=== PATIENT | female | born 1960 | race Caucasian/White ===

== ENCOUNTER 2018-09-23 12:09 | Inpatient (IN) ==
[2018-09-17 16:56] LABS: Appearance,Urine HAZY; Bilirubin,Urine NEG (NEG); Color,Urine YELLOW; Culture Indicated,Urine NO; Glucose,Urine (UA) NEGATIVE (NEG); Ketones,Urine NEG (NEG); Leukocyte Esterase,Urine NEG /uL (NEG); Nitrate,Urine NEG (NEG); Protein,Urine NEG (NEG); Urine Blood NEG mg/dL (<0.03); Urobilinogen,Urine NEG (NEG)
[2018-09-17 17:27] LABS: Basophils # (Auto) 0 K/mcL (0.0-0.3); Basophils % (Auto) 0.4 % (0.0-2.0); Eosinophils # (Auto) 0.1 K/mcL (0.0-0.7); Eosinophils % (Auto) 1.1 % (0.0-7.0); Granulocytes % (Auto) 58.9 % (38.0-78.0); Hematocrit 46.3 % (36.0-48.0); Hemoglobin 15.1 g/dL (12.0-15.0); Lymphocytes # (Auto) 3.4 K/mcL (1.5-4.8); Lymphocytes % (Auto) 31.2 % (15.5-49.0); Mean Cell Volume 79.8 fL (80.0-100.0); Mean Corpuscular HGB Conc 32.6 g/dL (31.0-36.0); Mean Platelet Volume 8.8 fL (7.4-10.4); Monocytes # (Auto) 0.9 K/mcL (0.1-0.9); Monocytes % (Auto) 8.4 % (1.0-12.0); Platelet Count 182 K/mcL (140-440); WBC 10.9 K/mcL (4.5-11.0)
[2018-09-17 17:45] LABS: Blood Urea Nitrogen 16 mg/dl (6-20); Calcium 9.4 mg/dl (8.6-10.4); Carbon Dioxide 20 mmol/L (22-30); Chloride 105 mmol/L (96-108); Glomerular Filtration Rate 81; Glucose 85 mg/dL (70-105)
[2018-09-17 18:41] LABS: Prothrombin Time 13.4 sec (11.9-14.5)
[~2018-09-23 12:09] MED LIST: 0.9 % SODIUM CHLORIDE 9 ML, KETOROLAC 30 MG, ROPIVACAINE HCL/PF 49.5 ML, EPINEPHrine 0.... IJ SCH; CELECOXIB 200 MG CAPSULE PO SCH; PREGABALIN 75 MG CAPSULE PO SCH; SCOPOLAMINE 1 PATCH PATCH TOPICAL ONE; ceFAZolin 2 GM in DEXTROSE 5% IN WATER 50 ML IV SCH; oxyCODONE 10 MG TAB.ER.12H PO SCH
[2018-09-23] MEDS ORDERED: IPRATROPIUM/ALBUTEROL 3 ML AMPUL.NEB NEB PRN ×2 (12:30→17:57)
[2018-09-23] MEDS ORDERED: GENTAMICIN SULFATE 800 MG/20 ML VIAL IR ONE (13:44)
[2018-09-23] MEDS ORDERED: PHENYLEPHRINE 10 MG/ML VIAL IV ONE (15:58)
[2018-09-23] MEDS ORDERED: ROPIVACAINE HCL/PF 20 ML VIAL IJ ONE (15:58)
[2018-09-23] MEDS ORDERED: ONDANSETRON 4 MG/2 ML VIAL IV ONE (15:58)
[2018-09-23] MEDS ORDERED: PROPOFOL 200 MG/20 ML VIAL IV ONE (15:58)
[2018-09-23] MEDS ORDERED: GLYCOPYRROLATE 0.2 MG/ML VIAL IV ONE (15:58)
[2018-09-23] MEDS ORDERED: LIDOCAINE HCL/PF 100 MG/5 ML SYRINGE IV ONE (15:58)
[2018-09-23] MEDS ORDERED: DEXAMETHASONE 10 MG/ML VIAL IV ONE (15:58)
[2018-09-23] MEDS ORDERED: ePHEDrine 50 MG/ML AMPUL IV ONE (15:58)
[2018-09-23] MEDS ORDERED: MIDAZOLAM 5 MG/5 ML VIAL IV ONE (15:58)
--- NOTE | 2018-09-23 17:30 | Brief Operative Note ---
Date of procedure: 09/23/18 Pre-op diagnosis: right knee osteoarthritis Post-op diagnosis: same Procedure: right total knee arthroplasty Grafts/Implants: Yes Anesthesia: spinal Complications: none Surgeon: Hardeep Braga [employer] Spacelift: Marilee Moncada Estimated blood loss (cc): 200 Tourniquet Time (Minutes): 50 Specimens Removed/Pathology: none sent Condition: stable Disposition: PACU
[2018-09-23] MEDS ORDERED: ONDANSETRON 4 MG/2 ML VIAL IV PRN ×2 (17:31→17:57)
[2018-09-23] MEDS ORDERED: BISACODYL 10 MG SUPP.RECT PR PRN (17:31)
[2018-09-23] MEDS ORDERED: POLYETHYLENE GLYCOL 3350 17 GM PACKET PO PRN (17:31)
[2018-09-23] MEDS ORDERED: ONDANSETRON 4 MG ODT TABLET SL PRN (17:31)
[2018-09-23] MEDS ORDERED: METHOCARBAMOL 750 MG TABLET PO PRN (17:31)
[2018-09-23] MEDS ORDERED: HYDROcodone/APAP 10/325MG TABLET PO PRN (17:31)
[2018-09-23] MEDS ORDERED: TRANEXAMIC ACID 1,000 MG/10 ML VIAL IV SCH (17:31)
[2018-09-23] MEDS ORDERED: MAGNESIUM HYDROXIDE 30 ML ORAL.SUSP PO PRN (17:31)
[2018-09-23] MEDS ORDERED: BENZOCAINE/MENTHOL 1 LOZENGE PO PRN ×2 (17:31→17:57)
[2018-09-23] MEDS ORDERED: FLEETS ADULT ENEMA PR PRN (17:31)
--- NOTE | 2018-09-23 17:31 | Discharge Summary ---
Ortho Discharge - TKA - Patient Instructions Diet: Regular Diet Activity: ambulate with assistive device, weight bearing as tolerated Total Knee Protocol: For Total Knee: Start ROM SARAH with stationary bike or rocking chair. Work on gaining full extension of knee. Posterior dislocation precautions provided. Hip abductor strengthening and gait training instructions provided. Apply Cryocuff as instructed. Dressing Care: May shower in 2 days - Follow Up Plan Follow Up Appointments: Marilee Moncada PA-C [Physician Ultrasound Specialist] - 10/08/18 11:00 am Disposition: Home, Self-Care Prognosis: Good Rehab Potential: Good Overall status at discharge: patient is progressing back to baseline
[2018-09-23] MEDS ORDERED: TOPIRAMATE 25 MG TABLET PO PRN (17:34)
[2018-09-23] MEDS ORDERED: oxyCODONE HCL 5 MG TABLET PO PRN (17:35)
[2018-09-23] MEDS ORDERED: NALOXONE HCL 0.4 MG/ML VIAL IV PRN (17:57)
[2018-09-23] MEDS ORDERED: KETOROLAC 30 MG/ML VIAL IV PRN (17:57)
[2018-09-23] MEDS ORDERED: METHOCARBAMOL 1,000 MG/10 ML VIAL IV PRN (17:57)
[2018-09-23] MEDS ORDERED: ACETAMINOPHEN 1,000 MG/100 ML BOTTLE IV ONE (17:57)
[2018-09-23] MEDS ORDERED: FLUMAZENIL 0.1 MG/ML ML IV PRN (17:57)
[2018-09-23] MEDS ORDERED: LACTATED RINGERS 250 ML IV PRN (17:57)
[2018-09-23] MEDS ORDERED: fentaNYL 100 MCG/2 ML VIAL IV PRN (17:57)
[2018-09-23] MEDS ORDERED: LACTATED RINGERS 1,000 ML IV SCH (18:00)
--- NOTE | 2018-09-23 18:25 | XRay Report ---
CLINICAL INFORMATION: Post-Op Total Knee COMPARISON: None. FINDINGS: Total knee prostheses is anatomically aligned. No osseous abnormality. Soft tissue swelling as expected. IMPRESSION: Negative Interpreted and Authenticated by: Hardeep Olivera 09/23/18
[2018-09-23] MEDS: KETOROLAC 15 MG/ML VIAL IV SCH ×2 (19:20→23:47)
[2018-09-23] MEDS: 0.9 % SODIUM CHLORIDE 1,000 ML IV SCH (19:20)
[2018-09-23] MEDS: HYDROmorphone 2 MG/ML VIAL IV PRN (20:26)
[2018-09-23] MEDS: ASPIRIN 81 MG TAB.CHEW PO SCH (20:27)
[2018-09-23] MEDS: DOCUSATE SODIUM 100 MG CAPSULE PO SCH (20:27)
[2018-09-23] MEDS: tiZANidine 4 MG TABLET PO SCH (20:27)
[2018-09-23] MEDS ORDERED: oxyCODONE HCL 5 MG TABLET PO SCH (21:00)
[2018-09-23] MEDS ORDERED: SENNOSIDES 1 TABLET PO SCH (21:00)
[2018-09-23] MEDS ORDERED: FESOTERODINE FUMARATE 8 MG PO SCH (21:00)
[2018-09-23] MEDS: 0.9 % SODIUM CHLORIDE 10 ML SYRINGE IV SCH (21:14)
[2018-09-23] MEDS: ceFAZolin 1 GM VIAL IV SCH (23:46)
[2018-09-23] MEDS: oxyCODONE HCL 5 MG TABLET PO PRN (23:46)
[2018-09-24] MEDS: 0.9 % SODIUM CHLORIDE 1,000 ML IV SCH ×2 (03:41→11:17)
[2018-09-24 05:50] LABS: Hematocrit 36.7 % (36.0-48.0); Hemoglobin 12.1 g/dL (12.0-15.0)
[2018-09-24] MEDS: KETOROLAC 15 MG/ML VIAL IV SCH ×2 (05:55→11:12)
[2018-09-24] MEDS: oxyCODONE HCL 5 MG TABLET PO PRN ×3 (05:55→16:26)
[2018-09-24] MEDS: 0.9 % SODIUM CHLORIDE 10 ML SYRINGE IV SCH ×2 (06:05→14:17)
--- NOTE | 2018-09-24 08:04 | Discharge Summary ---
Providers - Providers Patient information: Note initiated : 09/24/18 at 7:59 am Service Date, if different from initiated Date: [] Patient: Carmella Anderson 57 y/o F admitted on 09/23/18 for Right Total Knee Arthroplasty. Chief Complaint: [POD #1 s/p right TKA Having severe pain following walk. Also has chronic low back pain and cannot use walker, requesting crutches. Denies CP, SOB, numbness, tingling, calf pain. Requesting to go home today, has help at home] Discharge date: 09/24/18 Hospitalization Hospital course: Patient was brought to OR yesterday for right total knee arthroplasty which went on without complication. She was admitted overnight for post op pain control and observation. She worked with PT this morning and was able to walk successfully. She will likely discharge to home today, tomorrow if concerns of instability or pain control issues. She will follow up in office in 10-14 days. Discharge diagnosis: knee osteoarthritis Exam - Exam Incision healing: Yes Incision draining: No Incision red: No Incision swollen: No Incision inflamed: No Clean and dry: Yes Weight bearing status: as tolerated Range of motion: full foot and ankle Ortho Discharge - TKA - Patient Instructions Diet: Regular Diet Activity: ambulate with assistive device, weight bearing as tolerated Total Knee Protocol: For Total Knee: Start ROM SARAH with stationary bike or rocking chair. Work on gaining full extension of knee. Posterior dislocation precautions provided. Hip abductor strengthening and gait training instructions provided. Apply Cryocuff as instructed. Dressing Care: May shower in 2 days, Other (dermabond) - Follow Up Plan Follow Up Appointments: Marilee Moncada PA-C [Physician Modeling Analyst] - 10/08/18 11:00 am Disposition: Home, Self-Care Prognosis: Good Rehab Potential: Good I certify that the patient requires SNF services: No Overall status at discharge: patient is progressing back to baseline - Orders For Discharge Prescriptions: Aspirin [Ecotrin] 81 mg PO DAILY #60 tab.ec oxyCODONE HCL [Roxicodone] 5 - 10 mg PO Q4HP PRN #60 tab PRN Reason: Pain Additional Discharge Orders: Physical Therapy at Discharge - TKA Location: None Selected Crutches Location: None Selected Toilet Riser Discharge Order Location: None Selected Walker Location: None Selected Pending Studies Resuscitation Status Full Code Diet Regular Diet Start SatSep 24 1731 Aspirin (Aspirin) 81 mg PO BID [facility] Last Admin: 09/23/18 20:27 Dose: 81 mg Documented by: CARSON Docusate Sodium (Colace) 100 mg PO BID [facility] Last Admin: 09/23/18 20:27 Dose: 100 mg Documented by: CARSON Hydromorphone HCl (Dilaudid) 0.2 - 1 mg IV Q1HP PRN PRN Reason: PAIN LEVEL > 6 Last Admin: 09/23/18 20:26 Dose: 1 mg Documented by: CARSON Sodium Chloride (Sodium Chloride 0.9%) 1,000 mls @ 125 mls/hr IV .Q8H [facility] Last Admin: 09/24/18 03:41 Dose: 125 mls/hr Documented by: Infusion: 09/24/18 03:20 Dose: 125 mls/hr Documented by: Admin: 09/23/18 19:20 Dose: 125 mls/hr Documented by: CARSON Ketorolac Tromethamine (Toradol) 15 mg IV Q6 [facility] Stop: 09/25/18 12:01 Last Admin: 09/24/18 05:55 Dose: 15 mg Documented by: Admin: 09/23/18 23:47 Dose: 15 mg Documented by: Admin: 09/23/18 19:20 Dose: 15 mg Documented by: CARSON Oxycodone HCl (Roxicodone) 0 mg PO Q4-6HP PRN PRN Reason: Pain Last Admin: 09/24/18 05:55 Dose: 10 mg Documented by: Admin: 09/23/18 23:46 Dose: 10 mg Documented by: CARSON Fesoterodine Fumarate (Toviaz) Er 8 Mg Tablet 1 dose PO [facility] Last Admin: 09/23/18 20:27 Dose: 1 dose Documented by: CARSON Senna (Senokot) 2 tab PO [facility] Last Admin: 09/23/18 20:26 Dose: 2 tab Documented by: CARSON Sodium Chloride (Saline Flush) 10 ml IV Q8 [facility] Last Admin: 09/24/18 06:05 Dose: Not Given Documented by: Admin: 09/23/18 21:14 Dose: Not Given Documented by: CARSON Throat Lozenges (Cepacol) 1 lozenge PO PRN PRN PRN Reason: Sore Throat Last Admin: 09/23/18 19:20 Dose: 1 lozenge Documented by: CARSON Tizanidine HCl (Zanaflex) 4 mg PO QID [facility] Last Admin: 09/23/18 20:27 Dose: 4 mg Documented by: CARSON Shift Summary 09/24/18 02:38 Shift Summary by Anitha Mahajan A&O x4. Pt struggles with incontinence and retention. Voiding adequate amounts. PVR was <10. Dressing to the R knee is C/D/I. Pt is unable to use a walker because of previous back fractures/back surgeries - may need to consult with PT about best assistive device for her. Pt stood and pivoted to [facility] x1 this shift with 2 person assist and gait belt. After returning from surgery, pt struggled with pain - given 6mg morphine, 1 mg dilaudid, 15mg toradol, and a scheduled muscle relaxer before pain was at a comfortable level. VSS on RA but does need reminders to use IS and take deep breaths. B/P were in the low 90s systolically so fluids continued - NS at 125 ml/hr to the IV in the L forearm. No complaints of nausea. Initialized on 09/24/18 02:38 - END OF NOTE
[2018-09-24] MEDS: ceFAZolin 1 GM VIAL IV SCH (08:09)
[2018-09-24] MEDS: ASPIRIN 81 MG TAB.CHEW PO SCH (08:09)
[2018-09-24] MEDS: DOCUSATE SODIUM 100 MG CAPSULE PO SCH (08:09)
[2018-09-24] MEDS: tiZANidine 4 MG TABLET PO SCH ×2 (08:09→14:17)
[2018-09-24] MEDS: HYDROmorphone 2 MG/ML VIAL IV PRN (08:09)
--- NOTE | 2018-09-24 09:50 | Operative Note ---
DATE OF OPERATION: 09/23/2018 PREOPERATIVE DIAGNOSIS: Degenerative joint disease, right knee. POSTOPERATIVE DIAGNOSIS: Degenerative joint disease, right knee. PROCEDURE: Right total knee arthroplasty. SURGEON: Ryan Braga M.D. SIGN ERECTOR AND REPAIRER SURGEON: Marilee Moncada PA-C. The PA's assistance was required for the safe and efficient completion of the entire case. This provider's expertise and technical skill were required throughout the case. The PA assisted with preoperative coordination, intraoperative retraction, wound closure, dressing and splint application, as well as postoperative documentation and care coordination. ANESTHESIA: Spinal with LMA assist. ESTIMATED BLOOD LOSS: 200 mL COMPLICATIONS: None noted. SPECIMENS REMOVED: None. DRAINS: None. TOURNIQUET TIME: 50 minutes at 300 mmHg. IMPLANTS: CMW2 bone cement 20 grams x5, DePuy Attune tibial based fixed bearing size 5 cemented, DePuy Attune femoral posterior stabilized size 6 right narrow, DePuy Attune tibial insert fixed bearing posterior stabilized size 6, 7 mm AOX, DePuy Attune patella medialized dome 35 mm cemented AOX. INDICATIONS: The patient has had a long-standing history of worsening pain in the knee that has failed conservative treatment. Radiographs have confirmed advanced degenerative joint disease. After a long discussion about treatment options, the patient elected to proceed with a knee arthroplasty. The risks and benefits were discussed with the patient in detail including, but not limited to, the risks of anesthesia, problems with the heart or lungs related to anesthesia, infection, compromise or injury to the nerves and blood vessels, deep venous thrombosis, pulmonary embolism, pneumonia, continued pain after surgery, worsening pain or symptoms after surgery, swelling, loss of motion, instability, leg length discrepancy, and need for repeat surgery. DESCRIPTION OF PROCEDURE: The patient was seen in the pre-anesthesia waiting room where all questions were answered and the correct side and site were identified and marked. The patient was transferred to the operating room and administered the anesthetic and given pre-operative antibiotics. A time-out was then called. The extremity was prepped and draped, exsanguinated, and the tourniquet was inflated to 300 mmHg. A midline skin incision was then made with a standard medial parapatellar arthrotomy. Debridement of the menisci, ACL, and PCL was performed followed by balancing releases in the medial lateral plane. We then established intramedullary access to both the femur and tibia in a standard fashion. The femoral guide naida was initially placed with the distal femoral guide, pinned into place, and the distal femoral cut was performed and checked with a flat plate. We then turned our attention to the tibia. The intramedullary guide was placed with the proximal tibial cutting block. The block was appropriately positioned off the affected side, varus and valgus was checked with the extra-medullary guide, and the block was pinned into place. The proximal tibial cut was performed and the tibia was prepared for the tibial implant with appropriate rotation. The tibia, femur, and posterior compartment were debrided of osteophytes, loose bodies, and meniscal fragments We then used the gap balancing technique to balance extension with the first two cuts and good balancing was obtained with a 10 millimeter gap block. We turned our attention back to the femur and used the referencing block and implant to size appropriately. Using the gap balancing technique for the flexion space we set our rotation of the femur off the tibial cut. Anesthesia gave the patient 1 gram of Tranexamic Acid via an intravenous route. We placed the 4 in 1 cutting block and made anterior, posterior, and chamfer cuts. Box plasty cuts were then made in a standard fashion for the posterior stabilized prosthesis. We then completed osteophyte release and posterior capsule release from the posterior compartment. Trials were placed and we chose the polyethylene insert thickness that provided the best stability in all planes. With the trials in place, we did a measured resection for a resurfacing patella. We sized the patella and placed the patella trial and performed a lateral facetectomy with the saw and rongeur. Good tracking was obtained. We removed all trials, irrigated and dried all cut surfaces. We cemented the components into place including tibia, femur and patella. We placed a trial liner and held the knee in full extension with the patella compressed while the cement cured. We then removed all excess cement and placed the final polyethylene tibiofemoral component. Irrigation with 3 liters of antibiotic saline was then performed using jet-lavage. We let the tourniquet down and coagulated bleeding vessels. We injected a 100 cubic centimeter volume including Ropivacaine 49.25 cubic centimeters at 5 milligrams per cubic centimeter, Ketorolac 30 milligrams, and Epinephrine 0.5 milligrams into 100 cubic centimeters volume of normal saline. We closed the retinaculum with looped #2 Stratafix and #0 Vicryl. We closed the subcutaneous tissue and skin in layers out to Dermabond on the skin. A sterile pressure dressing was applied. All needle and sponge counts were correct. The patient was transferred to the recovery room in stable condition. JFaith:aissatou Job ID: [id number] Doc ID: [id number] Ryan Braga MD
== END 2018-09-24 16:52 | disposition home or self-care (01) | DRG 470 ==
LOC: MEDSUR 12:09
PROVIDERS: ADMIT Orthopaedic Surgery Sports Medicine; ATTEND Orthopaedic Surgery Sports Medicine